=== PATIENT | male | born 1975 | race African-American/Black ===

== ENCOUNTER 2016-12-02 07:41 | Emergency (ER) | payer OTHER ==
[~2016-12-02] VITALS: Ht 188 cm; Wt 105.0 kg
[~2016-12-02 07:41] MED LIST: ABIL5; ABILIFY; ELVI1TAB; ETRA200T; HYDR-1348; HYDR-519; LOPI1TAB; LOT10
[2016-12-02] MEDS ORDERED: KETOROLAC 60MG/2ML VIAL IM ONE (10:15)
[2016-12-02] MEDS ORDERED: LIDOCAINE HCL 1% 20ML VIAL (Pyxis) INJ INFIL ONE (10:15)
[2016-12-02 12:34] VITALS: BP 131/85
== END 2016-12-02 12:55 | disposition home or self-care (01) ==
LOC: ER 09:52
DX: L03.115 Cellulitis of right lower limb (principal); M25.512 Pain in left shoulder; F12.10 Cannabis abuse, uncomplicated
CPT/HCPCS: 10060; 73030; 96372; 99284; J1885; J3490; Z7610

== ENCOUNTER 2016-12-04 07:26 | Emergency (ER) | payer OTHER ==
[~2016-12-04] VITALS: Ht 188 cm; Wt 107.0 kg
[2016-12-04 08:37] VITALS: BP 144/86
== END 2016-12-04 08:38 | disposition home or self-care (01) ==
LOC: ER 07:58
DX: Z48.01 Encounter for change or removal of surgical wound dressing (principal)
CPT/HCPCS: 99283

== ENCOUNTER 2017-01-18 08:36 | Emergency (ER) | payer OTHER ==
[~2017-01-18] VITALS: Ht 188 cm; Wt 107.0 kg
[2017-01-18] MEDS ORDERED: AZITHROMYCIN 500 MG TABLET PO ONE (10:30)
[2017-01-18] MEDS ORDERED: CEFTRIAXONE SODIUM 250 MG/VIAL IM ONE (10:30)
[2017-01-18 11:22] VITALS: BP 114/81
== END 2017-01-18 11:38 | disposition home or self-care (01) ==
LOC: ER 10:29
DX: A64 Unspecified sexually transmitted disease (principal); R03.0 Elevated blood-pressure reading, without diagnosis of hypertension; I10 Essential (primary) hypertension; F10.20 Alcohol dependence, uncomplicated; Z79.899 Other long term (current) drug therapy; Z96.649 Presence of unspecified artificial hip joint
CPT/HCPCS: 96372; 99283; J0696

== ENCOUNTER 2017-01-23 08:43 | Inpatient (IN) | payer OTHER ==
[~2017-01-23] VITALS: Ht 188 cm; Wt 104.8 kg
[~2017-01-23 08:43] MED LIST changes: -ELVI1TAB; +ELVI1TAB2
[2017-01-23] MEDS ORDERED: KETOROLAC 30MG/ML VIAL IV ONE (12:30)
[2017-01-23] MEDS ORDERED: KETOROLAC 60MG/2ML VIAL IM ONE (13:00)
[2017-01-23] MEDS ORDERED: MORPHINE SULFATE 4 MG/ML CPJ (NOT FOR IM USE) IV ONE (14:30)
[2017-01-23] MEDS ORDERED: ONDANSETRON HCL 4MG/2ML VIAL IV ONE (14:30)
[2017-01-23 15:30] VITALS: BP 145/97
[2017-01-23 16:00] VITALS: BP 145/91
[2017-01-23] MEDS ORDERED: ACETAMINOPHEN 325MG TABLET PO PRN (16:30)
[2017-01-23] MEDS ORDERED: CLONIDINE 0.1MG TABLET PO PRN (16:30)
[2017-01-23] MEDS ORDERED: ONDANSETRON HCL 4MG/2ML VIAL IV PRN (16:30)
[2017-01-23] MEDS ORDERED: MAGNESIUM/ALUMINUM HYDROXIDE/SIMETHICONE 30ML UDC PO PRN (16:30)
[2017-01-23] MEDS ORDERED: IPRATROPIUM/ALBUTEROL 0.5-3(2.5)MG/3ML NEB INH PRN (16:30)
[2017-01-23] MEDS ORDERED: FLUO20CA33 PO (16:55)
[2017-01-23 16:57] LABS: BASOPHILS % 0.6 % (0.0-2.0); EOSINOPHILS % 1.4 % (0.0-5.0); HEMATOCRIT. 39.7 % (42.0-52.0); HEMOGLOBIN. 12.9 g/dL (14.0-18.0); LYMPHOCYTES % 18.2 % (20.0-50.0); MEAN CORPUSCULAR HEMOGLOBIN 25.7 pg (28.0-32.0); MEAN CORPUSCULAR VOLUME 79.1 fL (80.0-94.0); MEAN PLATELET VOLUME 8.3 fl (7.4-10.4); MONOCYTES % 3.4 % (2.0-8.0); NEUTROPHILS % 76.4 % (40.0-76.0); PLATELET 331 x1000/uL (130-400); RED BLOOD CELL COUNT 5.02 mill/uL (4.7-6.1); RED CELL DISTRIBUTION WIDTH 16.8 % (11.6-14.6)
[2017-01-23 17:19] LABS: CARBON DIOXIDE 27 mEq/L (21-32); CHLORIDE 104 mEq/L (98-107)
[2017-01-23] MEDS: FLUOXETINE HCL 20MG CAPSULE PO SCH (17:36)
[2017-01-23] MEDS: ENOXAPARIN 30MG/0.3ML SYR SUBCUT SCH (18:25)
[2017-01-23 20:00] VITALS: BP 129/83
[2017-01-23] MEDS: ARIPIPRAZOLE 5MG TABLET PO SCH (20:30)
[2017-01-24] VITALS: BP 137/94
[2017-01-24 04:55] LABS: CLARITY URINE CLEAR (CLEAR); COLOR URINE YELLOW (YELLOW); GLUCOSE URINE NEGATIVE (NEGATIVE); KETONES URINE NEGATIVE (NEGATIVE); LEUKOCYTE ESTERASE URINE 1+ (NEGATIVE); NITRITE URINE NEGATIVE (NEGATIVE); OCCULT BLOOD URINE NEGATIVE (NEGATIVE); PROTEIN URINE NEGATIVE (NEGATIVE)
[2017-01-24] MEDS: KETOROLAC 30MG/ML VIAL IV PRN ×2 (04:55→17:56)
[2017-01-24 05:47] LABS: *BARBITURATES SCREEN URINE NEGATIVE (NEGATIVE); *BENZODIAZEPINES SCREEN URINE NEGATIVE (NEGATIVE); *COCAINE SCREEN URINE NEGATIVE (NEGATIVE); CANNABINOID URINE SCREEN PRESUMTIVE POSITIVE (NEGATIVE); METHADONE URINE SCREEN NEGATIVE (NEGATIVE); OPIATES URINE SCREEN PRESUMTIVE POSITIVE (NEGATIVE); PHENCYCLIDINE URINE SCREEN NEGATIVE (NEGATIVE)
[2017-01-24 05:55] LABS: *AMPHETAMINES SCREEN URINE PRESUMTIVE POSITIVE (NEGATIVE)
[2017-01-24] MEDS: ENOXAPARIN 30MG/0.3ML SYR SUBCUT SCH ×2 (06:07→17:51)
[2017-01-24] MEDS: HYDROCODONE/ACETAMINOPHEN 5/325MG TABLET PO PRN ×3 (06:08→15:03)
[2017-01-24 06:10] LABS: BASOPHILS % 0.2 % (0.0-2.0); EOSINOPHILS % 1.6 % (0.0-5.0); HEMATOCRIT. 40.7 % (42.0-52.0); MEAN CORPUSCULAR HEMOGLOBIN 25.7 pg (28.0-32.0); MEAN CORPUSCULAR VOLUME 80.1 fL (80.0-94.0); MEAN PLATELET VOLUME 8.6 fl (7.4-10.4); MONOCYTES % 2.5 % (2.0-8.0); NEUTROPHILS % 80.7 % (40.0-76.0); PLATELET 361 x1000/uL (130-400); RED BLOOD CELL COUNT 5.08 mill/uL (4.7-6.1); RED CELL DISTRIBUTION WIDTH 16.9 % (11.6-14.6)
[2017-01-24 06:42] LABS: CARBON DIOXIDE 27 mEq/L (21-32); CHLORIDE 101 mEq/L (98-107); HDL CHOLESTEROL 43 mg/dL (40-59); LDL CHOLESTEROL 49 mg/dL (5-100)
[2017-01-24 08:00] VITALS: BP 142/97
[2017-01-24 12:00] VITALS: BP 122/85
[2017-01-24 16:00] VITALS: BP 127/93
[2017-01-24] MEDS: FLUOXETINE HCL 20MG CAPSULE PO SCH (17:51)
[2017-01-24 20:00] VITALS: BP 116/61
[2017-01-24] MEDS: ARIPIPRAZOLE 5MG TABLET PO SCH (20:14)
[2017-01-25] VITALS: BP 132/77
[2017-01-25 04:00] VITALS: BP 136/87
[2017-01-25 08:00] VITALS: BP 142/97
[2017-01-25] MEDS: ENOXAPARIN 30MG/0.3ML SYR SUBCUT SCH (08:25)
[2017-01-25] MEDS ORDERED: ALLOPURINOL 100 MG TABLET PO SCH (09:00)
[2017-01-25] MEDS ORDERED: CELECOXIB 200MG CAPSULE PO SCH (09:00)
[2017-01-25 12:00] VITALS: BP 133/85
[2017-01-25] MEDS: KETOROLAC 30MG/ML VIAL IV PRN (14:30)
[2017-01-25 15:26] VITALS: BP 136/84
[2017-01-25 16:00] VITALS: BP 139/92
[2017-01-27 09:07] LABS: ANGIOTENSION CONVERTING ENZYME 29 U/L (14-82)
[2017-01-27 13:12] LABS: ANTI-MYELOPEROXIDASE AB < 9.0 U/mL (0.0-9.0); ANTI-PROTEINASE 3 ABS < 3.5 U/mL (0.0-3.5); ATYPICAL P-ANCA <1:20 titer (Neg:<1:20); CYTOPLASMIC C-ANCA <1:20 titer (Neg:<1:20); PERINUCLEAR P-ANCA <1:20 titer (Neg:<1:20)
[2017-01-27 15:08] LABS: ANTI-CARDIOLIPIN AB IGG < 9 GPL U/mL (0-14); ANTI-CARDIOLIPIN AB IGM < 9 MPL U/mL (0-12)
[2017-01-27 17:12] LABS: ANTI-DNA DOUBLE STRANDED QUANT 1 IU/mL (0-9)
[2017-01-27 19:12] LABS: CYC CITRULLINATED PEP IgG/IgA 3 units (0-19)
[2017-01-28 19:12] LABS: ANA IFA Negative (.)
== END 2017-01-25 17:05 | disposition home health service (06) | DRG 351 ==
LOC: ER 10:38 → ENRESERV 14:36 → ER 15:14 → 6EST 15:26
PROVIDERS: ADMIT Internal Medicine; ATTEND Internal Medicine
DX: M87.851 Other osteonecrosis, right femur (principal); E44.1 Mild protein-calorie malnutrition; I10 Essential (primary) hypertension; Z96.642 Presence of left artificial hip joint; M1A.9XX1 Chronic gout, unspecified, with tophus (tophi); F31.9 Bipolar disorder, unspecified; M19.011 Primary osteoarthritis, right shoulder; G89.29 Other chronic pain; Z79.899 Other long term (current) drug therapy; Z82.49 Family history of ischemic heart disease and other diseases of the circulatory system; Z83.3 Family history of diabetes mellitus; Z91.81 History of falling; Z83.49 Family history of other endocrine, nutritional and metabolic diseases; Z80.9 Family history of malignant neoplasm, unspecified; Z82.69 Family history of other diseases of the musculoskeletal system and connective tissue
CPT/HCPCS: 36415; 73522; 80053; 80061; 80305; 81001; 82164; 83520; 83735; 84443; 84550; 85025; 85379; 85651; 86147; 86200; 86225; 86256; 86431; 93970; 96372; 96374; 96375; 97116; 97162; 99285; J1650; J1885; J2270; J2405

== ENCOUNTER 2017-02-08 18:46 | Emergency (ER) | payer OTHER ==
[~2017-02-08] VITALS: Ht 188 cm; Wt 109.0 kg
[~2017-02-08 18:46] MED LIST changes: +FLUO20CA33 PO
[2017-02-08] MEDS ORDERED: SODIUM CHLORIDE 0.9% 1,000 ML IV ONE (19:12)
[2017-02-08] MEDS ORDERED: MORPHINE SULFATE 4 MG/ML CPJ (NOT FOR IM USE) IV STA (19:12)
[2017-02-08] MEDS ORDERED: ONDANSETRON HCL 4MG/2ML VIAL IV STA (19:12)
[2017-02-08] MEDS ORDERED: KETOROLAC 30MG/ML VIAL IV STA (19:12)
[2017-02-08 20:18] LABS: HEMATOCRIT. 39.7 % (42.0-52.0); HEMOGLOBIN. 13.2 g/dL (14.0-18.0); MEAN CORPUSCULAR HEMOGLOBIN 25.1 pg (28.0-32.0); MEAN CORPUSCULAR VOLUME 75.8 fL (80.0-94.0); PLATELET 487 x1000/uL (130-400); RED BLOOD CELL COUNT 5.24 mill/uL (4.7-6.1); RED CELL DISTRIBUTION WIDTH 16.7 % (11.6-14.6)
[2017-02-08 20:23] LABS: INR 1.1; PARTIAL THROMBOPLASTIN TIME 33.6 sec (23.4-31.0)
[2017-02-08 20:44] LABS: ATYPICAL LYMPHOCYTES 3; PLATELET ESTIMATE INCREASED
[2017-02-08 20:48] LABS: CHLORIDE 100 mEq/L (98-107)
[2017-02-08 20:53] LABS: CARBON DIOXIDE 21 mEq/L (21-32)
[2017-02-08 23:12] VITALS: BP 146/103
[2017-02-08 23:15] LABS: *AMPHETAMINES SCREEN URINE NEGATIVE (NEGATIVE); *BARBITURATES SCREEN URINE NEGATIVE (NEGATIVE); *BENZODIAZEPINES SCREEN URINE NEGATIVE (NEGATIVE); *COCAINE SCREEN URINE NEGATIVE (NEGATIVE); CANNABINOID URINE SCREEN PRESUMTIVE POSITIVE (NEGATIVE); METHADONE URINE SCREEN NEGATIVE (NEGATIVE); OPIATES URINE SCREEN PRESUMTIVE POSITIVE (NEGATIVE); PHENCYCLIDINE URINE SCREEN NEGATIVE (NEGATIVE)
== END 2017-02-08 23:36 | disposition home or self-care (01) ==
LOC: ER 18:46
DX: M25.532 Pain in left wrist (principal); M25.522 Pain in left elbow; R73.9 Hyperglycemia, unspecified; M10.9 Gout, unspecified; F20.9 Schizophrenia, unspecified; F12.10 Cannabis abuse, uncomplicated; D64.9 Anemia, unspecified; I10 Essential (primary) hypertension; Z96.641 Presence of right artificial hip joint; Z20.6 Contact with and (suspected) exposure to human immunodeficiency virus [HIV]
CPT/HCPCS: 36415; 73080; 73090; 80048; 80305; 84550; 85025; 85610; 85730; 96374; 96375; 99285; J1885; J2270; J2405; J7030; Z7610; A4565

== ENCOUNTER 2017-03-01 20:49 | Emergency (ER) | payer OTHER ==
[~2017-03-01] VITALS: Ht 188 cm; Wt 104.0 kg
[2017-03-02] MEDS ORDERED: HYDROCODONE/ACETAMINOPHEN 5/325MG TABLET PO ONE (04:30)
[2017-03-02] MEDS ORDERED: INDOMETHACIN 50MG CAPSULE PO ONE (04:45)
[2017-03-02 05:00] LABS: BASOPHILS % 0.6 % (0.0-2.0); EOSINOPHILS % 2.5 % (0.0-5.0); HEMATOCRIT. 34.1 % (42.0-52.0); HEMOGLOBIN. 11.1 g/dL (14.0-18.0); MEAN CORPUSCULAR HEMOGLOBIN 24.2 pg (28.0-32.0); MEAN CORPUSCULAR VOLUME 74.3 fL (80.0-94.0); MEAN PLATELET VOLUME 7.7 fl (7.4-10.4); MONOCYTES % 3.3 % (2.0-8.0); NEUTROPHILS % 76.6 % (40.0-76.0); PLATELET 458 x1000/uL (130-400); RED BLOOD CELL COUNT 4.59 mill/uL (4.7-6.1); RED CELL DISTRIBUTION WIDTH 16.7 % (11.6-14.6)
[2017-03-02 05:17] LABS: CARBON DIOXIDE 26 mEq/L (21-32); CHLORIDE 104 mEq/L (98-107)
[2017-03-02 06:17] VITALS: BP 136/78
== END 2017-03-02 06:15 | disposition home or self-care (01) ==
LOC: ER 20:49
DX: M10.021 Idiopathic gout, right elbow (principal); M25.531 Pain in right wrist; M79.641 Pain in right hand; R03.0 Elevated blood-pressure reading, without diagnosis of hypertension; D50.9 Iron deficiency anemia, unspecified; F20.9 Schizophrenia, unspecified; F12.90 Cannabis use, unspecified, uncomplicated; Z86.19 Personal history of other infectious and parasitic diseases; Z96.649 Presence of unspecified artificial hip joint; Z79.899 Other long term (current) drug therapy
CPT/HCPCS: 36415; 80053; 84550; 85025; 99284; Z7610

== ENCOUNTER 2017-07-27 15:54 | Emergency (ER) | payer OTHER ==
[~2017-07-27] VITALS: Ht 188 cm; Wt 100.0 kg
[2017-07-27] MEDS ORDERED: KETOROLAC 60MG/2ML VIAL IM ONE (18:00)
[2017-07-27 18:33] VITALS: BP 124/74
== END 2017-07-27 18:54 | disposition home or self-care (01) ==
LOC: ER 16:07
DX: M25.561 Pain in right knee (principal); M10.9 Gout, unspecified; F20.9 Schizophrenia, unspecified; I10 Essential (primary) hypertension; F33.9 Major depressive disorder, recurrent, unspecified; Z96.641 Presence of right artificial hip joint; Z79.899 Other long term (current) drug therapy
CPT/HCPCS: 73562; 96372; 99284; J1885; Z7610

== ENCOUNTER 2018-04-20 20:41 | Emergency (ER) | payer OTHER ==
[~2018-04-20] VITALS: Ht 188 cm; Wt 105.0 kg
[~2018-04-20 20:41] MED LIST changes: -ABILIFY; +DIVA500T51 PO; +DOCU-286 PO; +FEBU40TA PO; +IMIP50TA7 PO; +INDO50CA14 PO; +PRO1 PO
[2018-04-20] MEDS ORDERED: KETOROLAC 60MG/2ML VIAL IM ONE (22:30)
[2018-04-20] MEDS ORDERED: MORPHINE SULFATE 10 MG/ML CPJ IM ONE (22:30)
[2018-04-21 00:49] VITALS: BP 142/99
== END 2018-04-21 00:52 | disposition home or self-care (01) ==
LOC: ER 20:41
DX: M25.512 Pain in left shoulder (principal); M25.412 Effusion, left shoulder; I10 Essential (primary) hypertension; V49.9XXA Car occupant (driver) (passenger) injured in unspecified traffic accident, initial encounter; Y93.89 Activity, other specified; Y92.410 Unspecified street and highway as the place of occurrence of the external cause; Z96.649 Presence of unspecified artificial hip joint; Z98.890 Other specified postprocedural states
CPT/HCPCS: 73030; 96372; 99284; J1885; J2270

== ENCOUNTER 2018-09-17 16:42 | Emergency (ER) | payer OTHER ==
[~2018-09-17] VITALS: Ht 188 cm; Wt 107.0 kg
[2018-09-17] MEDS ORDERED: BACITRACIN ZINC OINT UDPKT TOP ONE (17:45)
[2018-09-17] MEDS ORDERED: TETANUS, DIPHTHERIA, PERTUSSIS VAC/PF 0.5ML (>7YR OLD) IM ONE (17:45)
[2018-09-17] MEDS ORDERED: LIDOCAINE HCL 1% 20ML VIAL (Pyxis) INJ INFIL ONE (17:45)
[2018-09-17 18:53] VITALS: BP 122/78
== END 2018-09-17 18:46 | disposition home or self-care (01) ==
LOC: ER 16:42
DX: S61.213A Laceration without foreign body of left middle finger without damage to nail, initial encounter (principal); I10 Essential (primary) hypertension; X58.XXXA Exposure to other specified factors, initial encounter; Y93.89 Activity, other specified; Y92.89 Other specified places as the place of occurrence of the external cause; Y99.8 Other external cause status; Z96.649 Presence of unspecified artificial hip joint; Z79.899 Other long term (current) drug therapy
CPT/HCPCS: 12001; 90471; 90715; 99283; J3490

== ENCOUNTER 2018-09-21 19:48 | Emergency (ER) | payer OTHER ==
[~2018-09-21] VITALS: Ht 188 cm; Wt 103.0 kg
[2018-09-21 21:01] VITALS: BP 141/93
== END 2018-09-21 21:04 | disposition home or self-care (01) ==
LOC: ER 20:27
DX: S61.213D Laceration without foreign body of left middle finger without damage to nail, subsequent encounter (principal); X58.XXXD Exposure to other specified factors, subsequent encounter; I10 Essential (primary) hypertension; Z96.649 Presence of unspecified artificial hip joint; Z79.899 Other long term (current) drug therapy
CPT/HCPCS: 99281

== ENCOUNTER 2023-02-14 19:50 | Emergency (ER) | payer OTHER ==
[~2023-02-14] VITALS: Ht 190.5 cm; Wt 104.0 kg
[~2023-02-14 19:50] MED LIST changes: +BENA10TA75; -INDO50CA14 PO; +INDO50CA99 PO; -LOT10
[2023-02-14 20:12] VITALS: TEMP 98.7; O2SAT 97
[2023-02-14] MEDS ORDERED: IBUPROFEN 600MG TABLET PO ONE (20:30)
[2023-02-14 21:05] VITALS: BP 150/86; PULSE 108; RESP 18
== END 2023-02-14 21:44 | disposition home or self-care (01) ==
LOC: ER 19:50
DX: S70.02XA Contusion of left hip, initial encounter (principal); I10 Essential (primary) hypertension; Z79.899 Other long term (current) drug therapy; W18.39XA Other fall on same level, initial encounter; Y93.89 Activity, other specified; Y92.89 Other specified places as the place of occurrence of the external cause; Y99.8 Other external cause status
CPT/HCPCS: 73552; 99283

== ENCOUNTER 2023-04-06 13:08 | Emergency (ER) | payer OTHER ==
[~2023-04-06] VITALS: Ht 182.9 cm; Wt 100.0 kg
[2023-04-06 13:24] VITALS: O2SAT 97
[2023-04-06] MEDS ORDERED: SODIUM CHLORIDE 0.9% 1,000 ML IV ONE (15:00)
[2023-04-06 15:33] LABS: BASOPHILS % 0.3 % (0.0-2.0); DIFFERENTIAL COMMENT 0; EOSINOPHILS % 1.5 % (0.0-5.0); HEMATOCRIT. 44.6 % (42.0-52.0); HEMOGLOBIN. 14.2 g/dL (14.0-18.0); LYMPHOCYTES % 11.2 % (20.0-50.0); MEAN CORPUSCULAR HEMOGLOBIN 24.3 pg (28.0-32.0); MEAN PLATELET VOLUME 7.8 fl (7.4-10.4); MONOCYTES % 10.1 % (2.0-8.0); NEUTROPHILS % 76.9 % (40.0-76.0); PLATELET 250 x1000/uL (130-400); RED BLOOD CELL COUNT 5.86 mill/uL (4.7-6.1); RED CELL DISTRIBUTION WIDTH 14.7 % (11.6-14.6)
[2023-04-06] MEDS ORDERED: PIPERACILLIN/TAZ 3.375G PREMIX 50 ML IV ONE (17:00)
[2023-04-06] MEDS ORDERED: VANCOMYCIN 1G PREMIX 200 ML IV ONE (17:00)
[2023-04-06 17:51] LABS: ALANINE AMINOTRANSFERASE 28 IU/L (10-49); ALBUMIN 4.3 g/dL (3.2-4.8); ASPARTATE AMINOTRANSFERASE 32 IU/L (<34); BILIRUBIN TOTAL 0.6 mg/dL (0.1-1.0); CALCIUM 9.4 mg/dL (8.7-10.4); CARBON DIOXIDE 16 mEq/L (21-32); CHLORIDE 105 mEq/L (98-107); CREATININE 0.9 mg/dL (0.6-1.3); GLUCOSE 50 mg/dL (70-105); POTASSIUM 4.1 mEq/L (3.5-5.1); PROTEIN TOTAL 6.9 g/dL (6.0-8.3); SODIUM 137 mEq/L (136-145); UREA NITROGEN BLOOD 7 mg/dL (9-23)
[2023-04-06] MEDS ORDERED: PERMETHRIN 5% CREAM 60GM TOP ONE (18:15)
[2023-04-06] MEDS ORDERED: ACETAMINOPHEN 325MG TABLET PO ONE (18:15)
[2023-04-06 20:35] VITALS: BP 146/84; PULSE 108; RESP 20; TEMP 97.5
== END 2023-04-06 20:40 | disposition short-term general hospital (02) ==
LOC: ER 13:08 → EDBEDREQ 17:28 → CANBEDREQ 18:09 → ER 20:40
DX: R21 Rash and other nonspecific skin eruption (principal); D84.9 Immunodeficiency, unspecified; I10 Essential (primary) hypertension; Z79.899 Other long term (current) drug therapy; Z98.890 Other specified postprocedural states
CPT/HCPCS: 80053; 83605; 85025; 87040; 36415; 96361; 96365; 96366; 99285; J2543; Z7610 ×2; C1893

== ENCOUNTER 2023-06-18 21:59 | Emergency (ER) | payer OTHER ==
[~2023-06-18] VITALS: Ht 185.4 cm; Wt 98.0 kg
[2023-06-18 23:01] VITALS: BP 135/95; PULSE 108; RESP 18; TEMP 98.4; O2SAT 99
== END 2023-06-18 23:20 | disposition left against medical advice (07) ==
LOC: ER 21:59
DX: R06.02 Shortness of breath (principal); Z53.21 Procedure and treatment not carried out due to patient leaving prior to being seen by health care provider

== ENCOUNTER 2023-07-06 00:13 | Emergency (ER) | payer OTHER | END 2023-07-06 02:52 | disposition left against medical advice (07) | LOC: ER 00:13 | DX: R53.1 Weakness (principal); Z53.21 Procedure and treatment not carried out due to patient leaving prior to being seen by health care provider ==